=== PATIENT | male | born 1990 | race Caucasian/White ===

== ENCOUNTER 2019-03-06 13:03 | Emergency (ER) | payer OTHER, SELFPAY ==
[~2019-03-06] VITALS: Ht 170.2 cm; Wt 90.9 kg
[2019-03-06 14:00] LABS: INFLUENZA TYPE A NEGATIVE FOR TYPE A (NEGATIVE); INFLUENZA TYPE B NEGATIVE FOR TYPE B (NEGATIVE)
[2019-03-06] MEDS ORDERED: ACETAMINOPHEN 325 MG TABLET PO ONE (15:15)
[2019-03-06] MEDS ORDERED: IBUPROFEN 600 MG TABLET PO ONE (15:15)
[2019-03-06] MEDS ORDERED: ONDANSETRON HCL 4 MG TABLET PO ONE (15:15)
[2019-03-06 16:20] VITALS: BP 124/87
== END 2019-03-06 16:30 | disposition home or self-care (01) ==
LOC: EMS 13:04
DX: B34.9 Viral infection, unspecified (principal)
CPT/HCPCS: 87804; 99284; Q0162